=== PATIENT | male | born 1995 | race Caucasian/White ===

== ENCOUNTER 2017-09-23 13:59 | Emergency (ER) | payer BC ==
[~2017-09-23] VITALS: Ht 182.9 cm; Wt 93.0 kg
[2017-09-23 14:00] VITALS: BP 141/69; PULSE 90; RESP 15; TEMP 98.4; O2SAT 97
[2017-09-23] MEDS ORDERED: IBUPROFEN 800 MG TAB PO ONE (14:15)
[2017-09-23] MEDS ORDERED: PROPARACAINE HCL 0.5% OPHT SOLN 15 ML BTL LEFT EYE ONE (14:15)
--- NOTE | 2017-09-23 14:59 | PD ---
HPI Chief Complaint: Injury Time Seen by Provider: 14:09 Travel History International Travel<30 days: No Contact w/Intl Traveler<30days: No Traveled to known affect area: No History of Present Illness HPI 21-year-old male that presents to the ED for evaluation of injury to his face. Per patient is happened yesterday will he was working at his home. Per patient he was moving a heavy box and landed on his face. He did not lose consciousness. He developed a bruise and swelling on his nose and he had some nosebleed. He didn't think much of it until today he had some bleeding from his nose and he blew his nose and then also in his left eyelid swelled up and now his been having pain in that side. Per patient the pain is 8 out of 10. States that he has pain in the eye itself as well with movement. States having some blurry vision from the left eye. Denies hitting his eye with the box but he has an abrasion as well as a bruise noted to the bridge of the nose as well as to the left upper cheek close to the eyelid. Patient denies any prior injuries. No loss of consciousness. No numbness, tingling, weakness. PFSH Social History Alcohol Use: No Tobacco Use: No Substance Use: No Allergies-Medications (Allergen,Severity, Reaction): Coded Allergies: No Known Allergies (Verified Allergy, Unknown, 09/23/17) Reported Meds & Prescriptions Reported Meds & Active Scripts Active Medrol Dosepak (Methylprednisolone) 4 Mg Dspk 4 Mg PO DIRECTED Per Pharmacist direction Augmentin (Amoxicillin-Clavulanate) 875-125 Mg Tab 1 Tab PO BID 10 Days Ibuprofen 600 Mg Tab 600 Mg PO Q8H PRN Hydrocodone-Acetamin 5-325 mg (Hydrocodone/Acetaminophen) 5 Mg-325 Mg Tablet 1 Tab PO Q6HR PRN Review of Systems Except as stated in HPI: all other systems reviewed are Neg Physical Exam Narrative GENERAL: SKIN: Warm and dry. HEAD: Atraumatic. Normocephalic. EYES: Pupils equal and round 4 mm reactive to light and accommodation. No scleral icterus. No injection or drainage. EOM intact bilaterally. Fluorecyn stain WNL ENT: No nasal bleeding or discharge. Mucous membranes pink and moist. Tongue is midline. No uvula deviation. Patient does have reproducible pain and swelling noted on the left lower eyelid around the zygomatic area as well as in the left side of the bridge of the nose. Bruising noted. Full range of motion of the eye with EOM intact but has pain with movement horizontally. NECK: Trachea midline. No JVD. CARDIOVASCULAR: Regular rate and rhythm. RESPIRATORY: No accessory muscle use. Clear to auscultation. Breath sounds equal bilaterally. GASTROINTESTINAL: Abdomen soft, non-tender, nondistended. Hepatic and splenic margins not palpable. MUSCULOSKELETAL: Extremities without clubbing, cyanosis, or edema. No obvious deformities. NEUROLOGICAL: Awake and alert. No obvious cranial nerve deficits. Motor grossly within normal limits. Five out of 5 muscle strength in the arms and legs. Normal speech. PSYCHIATRIC: Appropriate mood and affect; insight and judgment normal. Data Data Last Documented VS Vital Signs Date Time Temp Pulse Resp B/P (MAP) Pulse Ox O2 Delivery O2 Flow Rate FiO2 09/23/17 17:32 13 09/23/17 14:00 98.4 90 141/69 (93) 97 Orders Orders Ibuprofen (Motrin) (09/23/17 14:15) Proparacaine 0.5% Opth Soln (Alcaine 0.5 (09/23/17 14:15) Ct Facial Bones W/O Iv Cont (09/23/17 ) Ed Discharge Order (09/23/17 17:41) [facility] Medical Decision Making Medical Screen Exam Complete: Yes Emergency Medical Condition: Yes Medical Record Reviewed: Yes Interpretation(s) Last Impressions Maxillofacial CT 09/23/17 0000 Signed Impressions: Service Date/Time: Saturday, September 23, 2017 16:55 - CONCLUSION: Air in soft tissues retro-orbital and anteriorly to the globe as well as left maxillary soft tissues. There is apparent slightly offset fracture of the floor of the left orbit with extrusion of possible fat or soft tissue contents into the superior left maxillary sinus. No evidence of extrusion of optic musculature or nerve. Darin Ha MD Differential Diagnosis Fracture versus bruise versus sinusitis versus orbital fracture Narrative Course 21-year-old male that presents to the ED for evaluation of injury to the face. Patient was properly examined and was found to have signs and symptoms concerning for fracture. CT was ordered and showed what appears to be over the floor close fracture. Patient does appear to have air on the eye and likely secondary to him blowing his nose. Patient was given ibuprofen with some relief. Bruising and swelling since been here seems to have improved on its own. This time patient does feel improved. Patient was told results. Case discussed with Dr. aMk for maxillofacial surgery who recommends close follow- up with him. Sinus precautions, pain medication and antibiotics and steroids. Follow-up with him. Patient unfortunately cannot fly for school and will have to be grounded onto his clear by the maxillofacial surgeon. He agrees and understands this plan. Follow with PCP. See ED worsening symptoms. Diagnosis Primary Impression: Orbital floor (blow-out) closed fracture Referrals: Nico Wang DMD Patient Instructions: General Instructions Departure Forms: School Release, Please excuse from school until (free text option): Patient is grounded until cleared by maxillofacial surgeon or his PCP. Patient suffered a fracture to his maxillary sinus. Tests/Procedures Additional Instructions: Take medications as prescribed. Follow-up with PCP. See ED for any worsening symptoms. Do not drink or drive while taking pain medication. Apply ice or heat as needed for pain. Do not blow your nose, do not sneeze or cough, did not drink water with a straw. Med/Other Pt SpecificInfo: Prescription(s) given Scripts Methylprednisolone Dosepak (Medrol Dosepak) 4 Mg Dspk 4 MG PO DIRECTED, #1 DSPK 0 Refills Per Pharmacist direction Prov: Jb Mars MD 09/23/17 Amoxicillin-Clavulanate (Augmentin) 875-125 Mg Tab 1 TAB PO BID for Infection for 10 Days, #20 TAB 0 Refills Prov: Jb Mars MD 09/23/17 Ibuprofen (Ibuprofen) 600 Mg Tab 600 MG PO Q8H Y for PAIN, #20 TAB 0 Refills Prov: Jb Mars MD 09/23/17 Hydrocodone/Acetaminophen (Hydrocodone-Acetamin 5-325 mg) 5 Mg-325 Mg Tablet 1 TAB PO Q6HR Y for PAIN SCALE 1 TO 10, #12 Prov: Jb Mars MD 09/23/17 Disposition: 01 DISCHARGE HOME Condition: Stable Devante Ramsey Sep 23, 2017 14:59
--- NOTE | 2017-09-23 17:12 | RADRPT ---
EXAM DATE/TIME: 09/23/2017 16:55 [facility] COMPARISON: No previous studies available for comparison. INDICATIONS : Hit in face with a box last night. Left periorbital pain and swelling. RADIATION DOSE: 47.38 CTDIvol (mGy) MEDICAL HISTORY : None SURGICAL HISTORY : None. ENCOUNTER: Initial ACUITY: 1 day PAIN SCORE: 7/10 LOCATION: Left eye TECHNIQUE: Volumetric scanning of the facial bones was performed. Using automated exposure contr ol and adjustment of the mA and/or kV according to patient size, radiation dose was kept as low as re asonably achievable to obtain optimal diagnostic quality images. DICOM format image data is availabl e electronically for review and comparison. FINDINGS: The patient demonstrates mucoperiosteal thickening posteriorly and inferiorly in the ri ght maxillary sinus which may have an admixture of air with fluid suggesting sinusitis. There is air fluid level posteriorly in the left maxillary sinus. There is air in the soft tissues in the maxillary regio n and in the left orbit as well as retro-bulbar. The globe and optic nerve as well as rectus musculat ure superior intact. There is a fracture slightly offset of the floor of the left orbit extruding thr ough this soft tissue and/or fat however no evidence of muscular or nerve protrusion. CONCLUSION: Air in soft tissues retro-orbital and anteriorly to the globe as well as left maxilla ry soft tissues. There is apparent slightly offset fracture of the floor of the left orbit with extru saima of possible fat or soft tissue contents into the superior left maxillary sinus. No evidence of e xtrusion of optic musculature or nerve. Darin Ha MD on September 23, 2017 at 17:06 Board Certified Radiologist. This report was verified electronically.
[2017-09-23] MEDS ORDERED: MEDR4PAK PO (17:41)
[2017-09-23] MEDS ORDERED: AUGM875T3 PO (17:41)
[2017-09-23] MEDS ORDERED: IBUP-232 PO (17:41)
[2017-09-23] MEDS ORDERED: HYDR-3516 PO (17:41)
--- NOTE | 2017-09-23 17:57 | PD ---
Data Data Last Documented VS Vital Signs Date Time Temp Pulse Resp B/P (MAP) Pulse Ox O2 Delivery O2 Flow Rate FiO2 09/23/17 17:32 13 09/23/17 14:00 98.4 90 141/69 (93) 97 Orders Orders Ibuprofen (Motrin) (09/23/17 14:15) Proparacaine 0.5% Opth Soln (Alcaine 0.5 (09/23/17 14:15) Ct Facial Bones W/O Iv Cont (09/23/17 ) Ed Discharge Order (09/23/17 17:41) MDM Supervised Visit with NITESH: Yes Narrative Course The history, exam, and medical decision-making in the associated mid-level provider note were completed with my assistance. I reviewed and agree with the findings presented. I attest that I had a [id number] encounter with the patient on the same day, and personally performed and documented my assessment and findings in the medical record. *My assessment and Findings: 21-year-old with facial injuries. Has a inferior orbital for fracture. He had blown his nose and had air in his retro-orbital soft tissues in his facial soft tissues. No evidence of entrapment. Will place on antibiotics, pain medicine, outpatient follow-up with Dr. Wang. Diagnosis Primary Impression: Orbital floor (blow-out) closed fracture Referrals: Nico Wang DMD Patient Instructions: General Instructions Departure Forms: School Release, Please excuse from school until (free text option): Patient is grounded until cleared by maxillofacial surgeon or his PCP. Patient suffered a fracture to his maxillary sinus. Tests/Procedures Additional Instruction: Take medications as prescribed. Follow-up with PCP. See ED for any worsening symptoms. Do not drink or drive while taking pain medication. Apply ice or heat as needed for pain. Do not blow your nose, do not sneeze or cough, did not drink water with a straw. Scripts Methylprednisolone Dosepak (Medrol Dosepak) 4 Mg Dspk 4 MG PO DIRECTED, #1 DSPK 0 Refills Per Pharmacist direction Prov: Jb Mars MD 09/23/17 Amoxicillin-Clavulanate (Augmentin) 875-125 Mg Tab 1 TAB PO BID for Infection for 10 Days, #20 TAB 0 Refills Prov: Jb Mars MD 09/23/17 Ibuprofen (Ibuprofen) 600 Mg Tab 600 MG PO Q8H Y for PAIN, #20 TAB 0 Refills Prov: Jb Mars MD 09/23/17 Hydrocodone/Acetaminophen (Hydrocodone-Acetamin 5-325 mg) 5 Mg-325 Mg Tablet 1 TAB PO Q6HR Y for PAIN SCALE 1 TO 10, #12 Prov: Jb Mars MD 09/23/17 Disposition: 01 DISCHARGE HOME Condition: Stable Jb Mars MD Sep 23, 2017 17:56
[2017-09-23 18:05] VITALS: BP 125/72; PULSE 82; RESP 15
== END 2017-09-23 18:06 | disposition home or self-care (01) ==
LOC: NEPE 13:59
DX: S02.32XA Fracture of orbital floor, left side, initial encounter for closed fracture (principal); W22.8XXA Striking against or struck by other objects, initial encounter; Y92.009 Unspecified place in unspecified non-institutional (private) residence as the place of occurrence of the external cause
CPT/HCPCS: 70486; 99283